=== PATIENT | female | born 1940 | race Caucasian/White ===

== ENCOUNTER 2017-08-25 05:53 | Day surgery (SDC) | payer MEDICARE ==
[2017-08-25] MEDS ORDERED: Buffered Lidocaine 0.9% SYRIN* 5 ML/SYR SYRINGE INTRADERM ONE (06:00)
[2017-08-25] MEDS ORDERED: Dexamethasone IV* 4 MG/ML 1 ML (4 MG) IV SLOW PU ONE (06:00)
[2017-08-25] MEDS ORDERED: Dexamethasone IV* 4 MG/ML 1 ML (4 MG) ONE (06:05)
[2017-08-25] MEDS ORDERED: ceFAZolin 2 GM PREMIX (*) 2 GM/50 ML BAG IVPB ONE (06:05)
[2017-08-25] MEDS ORDERED: Atracurium* 10 MG/ML 10 ML VIAL ONE (07:14)
[2017-08-25] MEDS ORDERED: Midazolam* 1 MG/ML 5 ML VIAL (5 MG) ONE (07:14)
[2017-08-25] MEDS ORDERED: Propofol* 10 MG/ML 20 ML BTL IV PUSH ONE (07:14)
[2017-08-25] MEDS ORDERED: fentaNYL* 50 MCG/ML 2 ML VIAL (100 MCG VIAL) ONE (07:14)
[2017-08-25] MEDS ORDERED: Ondansetron INJ* 2 MG/ML VIAL ONE (07:14)
[2017-08-25] MEDS ORDERED: Phenylephrine INJ* 10 MG/ML 1 ML VIAL (10 MG) ONE (07:14)
[2017-08-25] MEDS ORDERED: EPHEDrine (Pressors)* 50 MG/ML VIAL ONE (07:15)
[2017-08-25] MEDS ORDERED: Bupivacaine 0.5% SDV PF* 10-30ML VIAL ONE ×2 (07:39→08:00)
[2017-08-25] MEDS ORDERED: Ondansetron INJ* 2 MG/ML VIAL IV PRN (08:03)
[2017-08-25] MEDS ORDERED: oxyCODONE/Acetamin 5/325 MG* TAB PO PRN (08:03)
[2017-08-25] MEDS ORDERED: fentaNYL* 50 MCG/ML 2 ML VIAL (100 MCG VIAL) IV PRN (08:03)
[2017-08-25] MEDS ORDERED: Naloxone* 0.4 MG/ML 1 ML VIAL IV PRN (08:03)
[2017-08-25 09:20] VITALS: BP 183/86
--- NOTE | 2017-08-26 07:48 | RAD ---
INDICATION: Left foot bunion repair second hammertoe repair. COMPARISON: Comparison is made with a prior x-ray study from June 19, 2017. TECHNIQUE: 1.2 seconds of intermittent fluoroscopic guidance were provided and a single spot film of the left foot was obtained in the operating room. FINDINGS: The patient is status post osteotomy of the distal first metatarsal transfixed with a K wire. The patient is also status post second hammertoe repair. There is a K wire which projects over the second metatarsal and proximal, mid and distal phalanges. The bones are in normal alignment. IMPRESSION: INTRAOPERATIVE CONTROL FILMS. CPT II Codes: 6045F
--- NOTE | 2017-08-26 14:52 | OP ---
DATE OF OPERATION: 08/25/17 - [facility] DATE OF : 44 ATTENDING SURGEON: Alvarado Dave MD BROOM WORKER: Lisa Mazariegos PA-C PRE-OP DIAGNOSIS: Left hallux valgus with second toe overlap and hammertoe. POST-OP DIAGNOSIS: Left hallux valgus with second toe overlap and hammertoe. OPERATIVE PROCEDURE: Left Chevron bunion repair and left second PIP resection arthroplasty with second MTP release. DESCRIPTION OF PROCEDURE: The patient was taken to the operating room where incision was made in the first web space. Through this first webspace, we were able to release the adductor tendon away from the lateral border of the MTP joint #1 as well as a dorsal capsulotomy of the second MTP joint. We then made a transverse elliptical incision over the dorsum of the PIP joint # 2 and resected the condyles. We then pins joined in full extension using a 0.045 C-wire longitudinally across the PIP joint and into the mid MTP joint as well. We then made a soft tissue correction of the hallux valgus contraction by releasing the adductor tendon and creating a small capsulotomy laterally. We then made a straight medial incision over the MTP joint reflecting dorsal plantar flaps. An L-shaped capsulotomy was made, flapped plantarward and this allowed resection of the medial eminence. The Chevron osteotomy was performed taking care to exit proximal to the capsular exertion and translating medially 5 mm. We then pinned this with a plantar to dorsal 0.045 C-wire exiting the dorsal skin envelope and then we resected the redundant medial bone. The capsule was repaired with 0 Vicryl sutures. We then irrigated soft tissues of all 3 ones, closing with 3-0 Vicryl, 4-0 nylon and a compression dressing was applied. We did verify satisfactory position of the bone cuts on C-arm. [id number]/[facility] #: [id number]
== END 2017-08-25 09:22 | disposition home or self-care (01) ==
LOC: OR 05:53
PROVIDERS: ATTEND Orthopaedic Surgery
DX: M20.12 Hallux valgus (acquired), left foot (principal); M20.5X2 Other deformities of toe(s) (acquired), left foot; M20.42 Other hammer toe(s) (acquired), left foot; I10 Essential (primary) hypertension; K21.9 Gastro-esophageal reflux disease without esophagitis; F41.9 Anxiety disorder, unspecified
CPT/HCPCS: 76000; J0690; J1100; J2250; J2405; J2704; J3010